=== PATIENT | male | born 1995 | race Caucasian/White ===

== ENCOUNTER → 2020-07-21 22:48 | Outpatient (CLI) | payer OTHER, SELFPAY ==
[2020-07-21 17:11] VITALS: BMI 24.6
[2020-07-21 23:17] LABS: Thyroid Stim Hormone (TSH) 0.87 uIU/mL (0.358-3.74)
== END ==
PROVIDERS: Visit Provider Nurse Practitioner
DX: F41.9 Anxiety disorder, unspecified (principal)
CPT/HCPCS: 84443

== ENCOUNTER 2020-08-15 14:54 | Emergency (ER) | payer OTHER, SELFPAY ==
[2020-08-13 17:52] VITALS: BMI 24.7
[2020-08-15 14:55] VITALS: BP 115/74; PULSE 71; RESP 18; TEMP 36.7; O2SAT 99; BMI 23.6
--- NOTE | 2020-08-15 15:00 | ED.RN ---
PT DAD NUMBER [phone]
--- NOTE | 2020-08-15 15:23 | ED.VIS.PSYCH ---
History of Present Illness Chief Complaint: Suicidal Informant: Patient Onset: Weeks Associated Symptoms: Depressed, Change in Eating, Change in sleeping Narrative: Patient presents to the ER secondary to suicidal ideation. He states he wrote a suicide note yesterday and his father found it today. Patient reports mild history of anxiety in the past but never anything that required medications or counseling. He broke up with his fianc?e in February of last year and states since that time he had increased anxiety and depression. He also reports feelings of insecurity secondary to ED and increased pressure at work. Patient does live alone. He states he has not really slept well in the last 30 days and does take Ambien to try to help him sleep. He does state for a while he was not eating and drinking well but that has since improved. - Past Medical History (1) Anxiety Status: Acute Past Medical History - Allergies and Home Meds Allergies/Adverse Reactions: Allergies amoxicillin [From Augmentin] Allergy (Intermediate, Verified 08/15/20 14:55) rash at childhood clavulanic acid [From Augmentin] Allergy (Intermediate, Verified 08/15/20 14:55) rash at childhood bupropion Adverse Reaction (Severe, Verified 08/15/20 14:55) suicidal worse anxiety Primary Care Physician: NOT,DEFINED [NON-STAFF] - Lives: Alone Smoking Status: Never smoker Alcohol: None Drugs: None Review of Systems General: Denies: Chills, Fever Eyes: Denies: Visual changes - bilaterally ENT: Denies: Bilateral ear pain Cardiovascular: Denies: Chest pain Respiratory: Denies: Dyspnea, Cough Gastrointestinal: Denies: Abdominal pain Musculoskeletal: Denies: Extremity Pain Skin: Denies: Rash Neurological: Denies: Headache Psych: Reports: Anxiety, Suicidal thoughts Hematologic: Denies: Easy bruising, Easy bleeding Allergy: Denies: Uticaria Physical Exam Vital Signs/Narrative: Vital Signs Temp Pulse Resp BP Pulse Ox 08/15/20 14:55 98.0 F 71 18 115/74 99 Inital Vital Signs reviewed: Yes General: Well nourished, Well developed Head: Normocephalic ENT: Moist mucous membranes Neck: Supple Cardiovascular: Regular rate, Regular rhythm Respiratory: No distress, CTA bilaterally Abdomen: Soft, Nontender Skin: Normal color Neurological: Alert, Oriented x3 Psych: Suicidal thoughts, - - Patient speaks in a soft voice with poor eye contact. He has a flat affect. He does admit to suicidal thoughts with plan to drown himself. Diagnostic/Tx/Re-eval 08/15/20 15:45 Mucosa - Nose SARS-CoV-2 Antigen (Rapid) - Final Laboratory Results 08/15/20 08/15/20 08/15/20 15:27 15:27 15:27 WBC 7.8 RBC 5.12 Hgb 15.8 Hct 46.6 MCV 91.0 MCH 30.9 MCHC 33.9 RDW Std Deviation 38.9 RDW Coeff of Dominik 11.6 Plt Count 274 MPV 10.0 Immature Gran % (Auto) 0.400 Neut % (Auto) 76.7 H Lymph % (Auto) 16.1 L Summit % (Auto) 6.0 Eos % (Auto) 0.4 Baso % (Auto) 0.4 Absolute Neuts (auto) 6.0 Absolute Lymphs (auto) 1.25 Nucleated RBC % 0 Sodium 141 Potassium 4.3 Chloride 106 Carbon Dioxide 29.0 Anion Gap 6 BUN 18 Creatinine 1.73 H Estim Creat Clear Calc 75.89 Est GFR (MDRD) Af Amer 62 Est GFR (MDRD) Non-Af 51 L BUN/Creatinine Ratio 10.4 Glucose 85 Calcium 8.9 Urine Opiates Screen Urine Methadone Screen Ur Barbiturates Screen Ur Phencyclidine Scrn Ur Amphetamines Screen U Methamphetamin-MDMA U Benzodiazepines Scrn Urine Cocaine Screen U Cannabinoids Screen Ur Drug Screen Comment Ethyl Alcohol < 3.0 08/15/20 15:42 WBC RBC Hgb Hct MCV MCH MCHC RDW Std Deviation RDW Coeff of Dominik Plt Count MPV Immature Gran % (Auto) Neut % (Auto) Lymph % (Auto) Summit % (Auto) Eos % (Auto) Baso % (Auto) Absolute Neuts (auto) Absolute Lymphs (auto) Nucleated RBC % Sodium Potassium Chloride Carbon Dioxide Anion Gap BUN Creatinine Estim Creat Clear Calc Est GFR (MDRD) Af Amer Est GFR (MDRD) Non-Af BUN/Creatinine Ratio Glucose Calcium Urine Opiates Screen NEGATIVE Urine Methadone Screen NEGATIVE Ur Barbiturates Screen NEGATIVE Ur Phencyclidine Scrn NEGATIVE Ur Amphetamines Screen NEGATIVE U Methamphetamin-MDMA NEGATIVE U Benzodiazepines Scrn NEGATIVE Urine Cocaine Screen NEGATIVE U Cannabinoids Screen NEGATIVE Ur Drug Screen Comment Ethyl Alcohol - EKG Initial EKG Interpretation: Sinus Rhythm - Normal sinus rhythm at 84 with no acute ischemia. Patient has been cooperative throughout his ED stay. Blood work and urine tox screen are obtained and largely unremarkable. Covid test is negative. Patient is medically cleared for placement at a psychiatric facility. Patient has been accepted at [facility] Disposition - Plan for ED Patient: Disposition: Psychiatric Hospital or Unit Diagnosis: Suicidal ideation Referrals: NOT,DEFINED [NON-STAFF] -
[2020-08-15 15:44] LABS: Absolute Lymphocyte Count 1.25 X10^3/uL (0.83-4.51); Basophil# 0.03 X10^3/uL; Basophil% 0.4 % (0-1); Eosinophil# 0.03 X10^3/uL; Eosinophils% 0.4 % (0-5); Hematocrit 46.6 % (40-54); Hemoglobin 15.8 g/dL (13.0-16.5); Lymphocyte # 1.25 X10^3/ul (4.0); Lymphocyte % 16.1 % (19-41); Mean Corp Hgb Conc 33.9 g/dL (32-36); Mean Corpuscular Hgb 30.9 pg (27.0-32.0); Monocyte# 0.47 X10^3/uL; NRBC Flagged by Analyzer 0 % (0-5); Neutrophil # 5.97 X10^3/uL (2.7-7.7); Neutrophil % 76.7 % (47-70); Platelet Count 274 K/mm3 (150-450); RBC Distribution Width CV 11.6 % (11.6-14.6); RBC Distribution Width SD 38.9 fl (35.1-43.9); Red Blood Count 5.12 M/mm3 (4.6-6.2); White Blood Count 7.8 K/mm3 (4.4-11.0)
--- NOTE | 2020-08-15 16:00 | CM.ED ---
SOCIAL WORK ASSESSMENT Informant: Dr. Alvarez Reason for Consult: Suicidal ideation with plan Chief Compliant: Patient presents to ER with his father for suicidal ideation. Father reports found suicide note written by patient. Marital/Social History: Single Living Situation: Home alone Support/Resources: Family, [facility] Education/Employment History: Bachelor's Degree. Patient employed at [employer] Mental Health Treatment/History: Depression, Anxiety. Patient states was prescribed Wellbutrin and due to suicidal ideation was advised to stop taking it. Patient states is prescribed Ambien for sleep and it doesn't work, other than the first night. Triggers/Stressors: Broke up with fiance in February 2020, patient reports issues with erectile dysfunction, stress at work. Patient states unable to find anne or excitement in anything. Coping Skills: Basketball Abuse Issues: Patient denies any history of emotional, physical or sexual abuse. Substance Abuse History: Patient reports history of marijuana use. Patient states last use February 2020. Risk to Self/Others: Suicidal- Patient admits to suicidal ideation with plan to jump off a building. Patient reports no prior history of attempts. Homicidal- Patient denies any homicidal ideation. Mental Status Exam: Orientation- A&Ox3 Memory- Fair Appearance/General Behavior: clean/appropriate, calm Mood/Affect: depressed, flat, anxious Communication Pattern: responds to questions Thought Process: appropriate Judgment: poor Assessment: Met with patient in room. Sitter protocol in place. Patient's father at bedside. Patient requested to speak with this worker alone. Father escorted to waiting room. Patient admits to suicidal ideation with plan to jump off a building. Patient states father found suicide note. Patient stating stress at work, issues with erectile dysfunction, and unable to find anne or excitement in anything. Patient reports has not been sleeping. Patient states was prescribed Ambien and Wellbutrin and states Ambien worked the first night. Wellbutrin stopped because of suicidal thoughts. Patient reports inability to focus or concentrate at work. Emotional support and active listening provided. Collaboration with Dr. Alvarez. Plan for inpatient psych hospitalization. This worker to facilitate placement. Patient's father escorted back to patient's room. Patient's father reports concerns for patient's safety stating, he needs help. Informed of plan for hospitalization. Plan: Referral to inpatient psych once medically cleared Gabino Fierro MSW, CAREER AND GUIDANCE COUNSELOR
[2020-08-15 16:09] LABS: Anion Gap 6 (5-15); BUN 18 mg/dL (7-18); BUN/Creat Ratio 10.4 RATIO (10-20); Calcium,Total 8.9 mg/dL (8.5-10.1); Chloride 106 mmol/L (98-107); Creatinine, Serum 1.73 mg/dL (0.70-1.30); EST Glomerular Filtration Rate 51 mL/min (>60); Est Glom Filt Rate - Afr Amer 62 mL/min (>60); Estimated Creatinine Clearance 75.89 ml/min; Glucose 85 mg/dL (74-106); Potassium 4.3 mmol/L (3.5-5.1); Sodium Level 141 mmol/L (136-145)
[2020-08-15 16:20] LABS: Alcohol, Blood (Medical)-Serum < 3.0 mg/dL
[2020-08-15 16:28] LABS: Amphetamine Urine VISTA NEGATIVE (<1000 ng/mL); Barbiturate Urine VISTA NEGATIVE (< 200 ng/mL); Benzodiazepine Urine VISTA NEGATIVE (< 200 ng/mL); Cocaine Urine VISTA NEGATIVE (< 300 ng/mL); Ecstacy Urine VISTA NEGATIVE (< 500 ng/mL); Methadone Urine VISTA NEGATIVE (< 300 ng/mL); PCP Urine VISTA NEGATIVE (< 25 ng/mL); THC Urine VISTA NEGATIVE (< 50 ng/mL); Vista UDS pH Range 7
--- NOTE | 2020-08-15 17:09 | CM.ED ---
SOCIAL WORK Referral called and faxed to Galina at [facility]. Pending review at this time. Gabino Fierro, FUEL CELL REPAIRER, DIRECTOR OF WEB MARKETING
[2020-08-15 17:29] VITALS: RESP 16
--- NOTE | 2020-08-15 18:17 | CM.ED ---
SOCIAL WORK Call to [facility] to check on status of referral. Unable to speak with someone in intake at this time. Left message, awaiting call back. Patient updated. Delphine. Sri, EQUIPMENT MAINTENANCE TECH, COMMUNITY ASSOCIATION MANAGER
--- NOTE | 2020-08-15 18:48 | CM.ED ---
SOCIAL WORK Received call from Kobe with [facility] requesting EKG. Dr. Alvarez updated. EKG ordered at this time. Gabino Fierro, GRAND SCRIBE, FUR REPAIR INSPECTOR
--- NOTE | 2020-08-15 18:50 | EKG12_ITS ---
Test Reason : [facility] [place] Blood Pressure : / mmHG Vent. Rate : 084 BPM Atrial Rate : 084 BPM P-R Int : 164 ms QRS Dur : 092 ms QT Int : 358 ms P-R-T Axes : 063 066 054 degrees QTc Int : 423 ms Normal sinus rhythm Normal ECG Confirmed by MARQUEZ WORKMAN, DEDE ([id number]), newspaper editor managing MELANY STOVALL ([id number]) on 08/19/2020 6:52:51 AM Referred By: LACIE Confirmed By:DEDE ZAYAS MD
[2020-08-15 19:08] VITALS: BP 141/87; PULSE 90; RESP 16; TEMP 36.2; O2SAT 98
--- NOTE | 2020-08-15 19:11 | CM.ED ---
SOCIAL WORK EKG received and faxed to [facility]. Kobe with [facility] updated. Dr. Greco has accepted patient. Nurse to call report to [phone]. Software Engineer Intern to set up transport. Patient updated. Plan: Dom Fierro MSW, TRANSCRIBER
== END 2020-08-15 20:39 ==
PROVIDERS: Emergency Provider Emergency Medicine
DX: R45.851 Suicidal ideations (principal); F41.9 Anxiety disorder, unspecified
CPT/HCPCS: 80048; 80307; 82077; 85025; 87426; 93005; 99285